=== PATIENT | female | born 1950 | race Caucasian/White ===

== ENCOUNTER 2018-04-20 07:48 | Emergency (ER) | payer BC ==
[2018-04-20] MEDS ORDERED: Meclizine TAB* 12.5 MG PO ONE (08:15)
--- NOTE | 2018-04-20 08:30 | ED ---
Dizziness - HPI Summary HPI Summary: 67 female presents with dizziness for the past week. She says worse when she is standing. She states that it may coincide with her elevated blood pressure. She denies any chest pain or shortness of breath. The dizziness is worse with movement. She states that it feels like she is falling to the right mostly. She denies any ear pain. No fever. No headache. States that the she did not have any dizziness this morning but then she went to the bathroom and she felt so dizzy that it felt like she was going to pass out. She was seen by her primary a couple days ago and told that has fluid behind the ear and to take Flonase. She has been taken the Flonase. She states that her eyes have felt dry for the past week. She has implants in her eyes. She admits to urinary frequency but no dysuria. No recent illness. No abdominal pain. no nausea or vomiting. Her brother did have a CVA. Only medical condition is high blood pressure. She did have recent blood pressure medication changed to metoprolol 3 weeks ago which she has not had before. She needed her blood pressure medications change because she had issues with her kidney function the beginning of this year. - History Of Current Complaint Chief Complaint: EDDizziness Stated Complaint: DIZZINESS Time Seen by Provider: 04/20/18 08:01 - Allergies/Home Medications Allergies/Adverse Reactions: Allergies Allergy/AdvReac Type Severity Reaction Status Date / Time bee venom protein (honey bee) Allergy Anaphylatic Verified 04/20/18 08:01 Shock iodine Allergy Hives Verified 04/20/18 08:01 Sulfa (Sulfonamide Allergy Hives Verified 04/20/18 08:01 Antibiotics) adhesives Allergy Rash Uncoded 04/20/18 08:01 cillins Allergy Diarrhea Uncoded 04/20/18 08:01 PMH/Surg Hx/FS Hx/Imm Hx Endocrine/Hematology History: Denies: Hx Diabetes Cardiovascular History: Reports: Hx Hypertension Denies: Hx Pacemaker/ICD Respiratory History: Denies: Hx Asthma Sensory History: Denies: Hx Hearing Aid Psychiatric History: Denies: Hx Panic Disorder - Cancer History Cancer Type, Location and Year: SKIN Hx Chemotherapy: No Hx Radiation Therapy: No - Surgical History Surgery Procedure, Year, and Place: PAPILLOMA-Left breast , SKIN CA FACE, Infectious Disease History: No Infectious Disease History: Denies: Traveled Outside the [place] in Last 30 Days - Family History Known Family History: Positive: Cardiac Disease, Other - CVA - Social History Alcohol Use: Daily Alcohol Amount: 2 drinks per day Substance Use Type: Reports: None Smoking Status (MU): Heavy Every Day Tobacco Smoker Review of Systems Negative: Fever Negative: Chest Pain Negative: Shortness Of Breath Neurological: Other - dizziness All Other Systems Reviewed And Are Negative: Yes Physical Exam Triage Information Reviewed: Yes Vital Signs On Initial Exam: Initial Vitals Temp Pulse Resp BP Pulse Ox 98.7 F 65 16 185/75 96 04/20/18 07:52 04/20/18 07:52 04/20/18 07:52 04/20/18 07:52 04/20/18 07:52 Vital Signs Reviewed: Yes Appearance: Positive: Well-Appearing Skin: Positive: Warm, Dry Head/Face: Positive: Normal Head/Face Inspection Eyes: Positive: Normal, EOMI, STANLEY, Conjunctiva Clear, Other: - nystagmus present ENT: Positive: Normal ENT inspection, Pharynx normal, TMs normal Respiratory/Lung Sounds: Positive: Clear to Auscultation, Breath Sounds Present Cardiovascular: Positive: Normal, RRR Abdomen Description: Positive: Nontender, Soft Bowel Sounds: Positive: Present Musculoskeletal: Positive: Strength/ROM Intact Neurological: Positive: Sensory/Motor Intact, Alert, Oriented to Person Place, Time, CN Intact II-III, Finger to Nose, Other - rapid alternating movements intact, unidirectional nystagmus, absent skew, pos head thrust to left. Negative: Gilles-Mclean Briscoe Test Psychiatric: Positive: Normal Diagnostics - Vital Signs Vital Signs Temp Pulse Resp BP Pulse Ox 04/20/18 08:08 98.5 F 64 16 213/97 97 04/20/18 07:52 98.7 F 65 16 185/75 96 - Laboratory Result Diagrams: 04/20/18 08:08 04/20/18 08:08 Lab Statement: Any lab studies that have been ordered have been reviewed, and results considered in the medical decision making process. - CT brain CT Interpretation: No Acute Changes - IMPRESSION: There is no evidence of intracranial mass or hemorrhage present. Chronic ischemic White matter change is noted. CT Interpretation Completed By: Radiologist - EKG No standard instances Cardiac Rate: NL EKG Rhythm: Sinus Rhythm ST Segment: Normal EKG Interpretation: sinus rhythm EKG Comparison: No Significant Change Re-Evaluation - Re-Evaluation First Eval Re-Evaluation Time: 09:03 Change: Unchanged Comment: normal gait ambulates but states feels weak Second Eval Re-Evaluation Time: 10:07 Change: Improved Comment: better after blood pressure lower Dizzy Course/Dx - Course Course Of Treatment: 67 female presents with dizziness for the past week. She says worse when she is standing. She states that it may coincide with her elevated blood pressure. She denies any chest pain or shortness of breath. The dizziness is worse with movement. She states that it feels like she is falling to the right mostly. She denies any ear pain. No fever. No headache. States that the she did not have any dizziness this morning but then she went to the bathroom and she felt so dizzy that it felt like she was going to pass out. She was seen by her primary a couple days ago and told that has fluid behind the ear and to take Flonase. She has been taken the Flonase. She states that her eyes have felt dry for the past week. She has implants in her eyes. She admits to urinary frequency but no dysuria. No recent illness. No abdominal pain. no nausea or vomiting. Her brother did have a CVA. Only medical condition is high blood pressure. She did have recent blood pressure medication changed to metoprolol 3 weeks ago which she has not had before. on exam has nystagmus present unidirectional. CN 2-12 intact. neg nle-ilag-mowt. has pos head thrust to left. ekg similiar to previous. labs wbc normal. sodium 133. vitals not orthostatic. brain CT normal. bp is 186/97 manual. after clondine is 176/80. patient blood pressure had been relatively normal until today. weakness and dizziness could be a result of medication reaction. could also be vestibular component as has positive hints test. will have follow up with primary to try switching blood pressure meds. patient understand and agrees with plan. - Diagnoses Differential Diagnosis/HQI/PQRI: Benign Paroxysmal Positional Vertigo, CVA, Hypovolemia, Medication Reaction Provider Diagnoses: Hypertension, Dizziness Discharge - Sign-Out/Discharge Documenting (check all that apply): Patient Departure - Discharge Plan Condition: Good Disposition: HOME Prescriptions: Meclizine TAB* [Antivert 12.5 TAB*] 25 mg PO TID PRN #21 tab PRN Reason: Dizziness Patient Education Materials: Dizziness (ED) Referrals: Rodrigo Perez MD [Primary Care Provider] - Mack Crawley MD [Medical Doctor] - Additional Instructions: Take meclizine up to 3 tablets a day for dizziness as needed check blood pressure daily Follow up with primary within 5 days Referral given to cardiology if blood pressure continues to be elevated Return to ED if develop any new or worsening symptoms - Billing Disposition and Condition Condition: GOOD Disposition: Home
[2018-04-20 08:35] LABS: ABS Basophils 0.1 10^3/ul (0-0.2); ABS Eosinophils 0 10^3/ul (0-0.6); ABS Lymphocytes 1.3 10^3/ul (1.0-4.8); ABS Monocytes 0.4 10^3/ul (0-0.8); ABS Neutrophils 7.8 10^3/ul (1.5-7.7); ABS Nucleated RBC 0 10^3/ul; Eosinophil % 0.4 % (0-6); Hematocrit 49 % (35-47); Hemoglobin 16.9 g/dl (12.0-16.0); Lymphocyte % 13.5 % (25-47); Mean Corpuscular HGB Conc 35 g/dl (31-36); Mean Corpuscular Hemoglobin 32 pg (27-31); Mean Corpuscular Volume 92 fL (80-97); Mean Platelet Volume 7.8 um3 (7.4-10.4); Nucleated Red Blood Cells % 0.1; Platelet Count 158 10^3/ul (150-450); Red Blood Count 5.29 10^6/ul (4.00-5.40); Red Cell Distribution Width 13 % (10.5-15); White Blood Count 9.6 10^3/ul (3.5-10.8)
[2018-04-20 08:45] LABS: EGFR Non-African American 70.3 (>60)
[2018-04-20 08:55] LABS: INR 0.94 (0.77-1.02)
[2018-04-20 08:57] LABS: Urine Appearance Clear; Urine Blood 2+ (Negative); Urine Color Straw; Urine Ketones Negative (Negative); Urine Protein Negative (Negative); Urine Red Blood Cell Trace(0-2/hpf) (Absent); Urine Specific Gravity 1.002 (1.010-1.030); Urine Urobilinogen Negative (Negative); Urine White Blood Cell Absent (Absent)
--- NOTE | 2018-04-20 09:00 | RAD ---
Indication: Dizziness. CT of the brain was performed without IV contrast. Ventricular structures are midline. No midline shift is noted. The extra-axial spaces are unremarkable. There is periventricular lucency consistent with chronic ischemic White matter change. There is no evidence of mass or hemorrhage. No other high or low density lesions are identified. Mastoid air cells and paranasal sinuses are otherwise unremarkable. IMPRESSION: There is no evidence of intracranial mass or hemorrhage present. Chronic ischemic White matter change is noted.
[2018-04-20] MEDS ORDERED: cloNIDine TAB* 0.1 MG PO ONE (09:13)
[2018-04-20 10:18] VITALS: BP 198/90
== END 2018-04-20 10:16 | disposition home or self-care (01) ==
LOC: ED 07:48
DX: R42 Dizziness and giddiness (principal); I10 Essential (primary) hypertension; R35.0 Frequency of micturition; Z88.3 Allergy status to other anti-infective agents; Z91.030 Bee allergy status; Z88.0 Allergy status to penicillin; Z88.2 Allergy status to sulfonamides; Z91.048 Other nonmedicinal substance allergy status; Z85.828 Personal history of other malignant neoplasm of skin; Z82.49 Family history of ischemic heart disease and other diseases of the circulatory system; Z82.3 Family history of stroke; F17.200 Nicotine dependence, unspecified, uncomplicated
CPT/HCPCS: 36415; 70450; 80053; 81003; 81015; 83605; 83735; 84443; 84484; 85025; 85610; 93005; 99283; A9270-GY

== ENCOUNTER 2018-05-01 17:07 | Emergency (ER) | payer BC ==
[2018-05-01 17:15] VITALS: BP 134/60
--- NOTE | 2018-05-01 17:35 | UC ---
Dizzy HPI HPI Summary: Per med admin "Seen at [facility] er on 04/20/18 for dizziness, saw PCP on Friday, BP medication changed on 04/28/18, continues to have episodes of dizziness and increase pulse per patient." -We are able to obtain notes from visit the emergency room. CAT scan was negative. EKG was nonactionable. Labs were nonactionable. She is here with her today. -She hasn't felt well in 3 weeks. Symptoms are vague. She describes a feeling as if she is given a pass out. It happened on 04/20 and then again this afternoon at 4:30. This episode occurred when she was walking down her stairs to go to the basement. She felt as if she was given a pass out. She didn't hear her ears ringing she maybe got a little bit clammy. She sat down on the steps put her head down and waited to recover and then ascended the steps without any problems. She then called her to come home from work. She denies room spinning dizziness. She doesn't have any symptoms when she wakes up in the morning or when she rolls over or gets out of bed. She denies chest pains and shortness of breath. No palpitations. No nausea or vomiting. She has been checking her blood pressures at home and concern for having a heart rate of 96 this afternoon. She is no longer on metoprolol but taking the most certain as directed. She has an appointment with an ENT and cardiology upcoming because of her symptoms. She has a follow-up appointment with her PCP office on 05/06/18. -She was given meclizine for the emergency room without any relief. She has never had vertigo that she knows of. She has been told it was a mild amount of fluid in her ear when she described crackling and it recently. -She doesn't have any obvious symptoms of unilateral weakness numbing or tingling. She gets some prickly-like feeling in her bilateral fingers and toes. No slurred speech. No weakness or dropping things. She does have a prickly feeling in her right abdomen and right flank. Denies dysuria area and no rash. No history of shingles.-she reporst nml carotid dopplers w/in the apst 1 month - History Of Current Complaint Chief Complaint: UCGeneralIllness Stated Complaint: LIGHTHEADED/ PALPITATIONS/ ELVATED BP Time Seen by Provider: 05/01/18 17:10 Pain Intensity: 0 - Allergies/Home Medications Allergies/Adverse Reactions: Allergies Allergy/AdvReac Type Severity Reaction Status Date / Time bee venom protein (honey bee) Allergy Anaphylatic Verified 05/01/18 17:16 Shock iodine Allergy Hives Verified 05/01/18 17:16 Sulfa (Sulfonamide Allergy Hives Verified 05/01/18 17:16 Antibiotics) adhesives Allergy Rash Uncoded 05/01/18 17:16 cillins Allergy Diarrhea Uncoded 05/01/18 17:16 Home Medications: Home Medications Losartan Potassium [Cozaar] 50 mg PO DAILY 05/01/18 [History Confirmed 05/01/18] PMH/Surg Hx/FS Hx/Imm Hx Previously Healthy: Yes Cardiovascular History: Hypertension - Surgical History Surgical History: Yes Surgery Procedure, Year, and Place: PAPILLOMA-Left breast , SKIN CA FACE, - Family History Known Family History: Positive: Cardiac Disease, Other - CVA - Social History Alcohol Use: Daily Alcohol Amount: 2 drinks per day Substance Use Type: None Smoking Status (MU): Light Every Day Tobacco Smoker Review of Systems Constitutional: Negative Skin: Negative Eyes: Negative ENT: Negative Respiratory: Negative Cardiovascular: Negative Gastrointestinal: Negative Genitourinary: Negative Motor: Negative Neurovascular: Negative Musculoskeletal: Negative Neurological: Negative, Numbness, Other - lightheaded Psychological: Negative Is Patient Immunocompromised?: No All Other Systems Reviewed And Are Negative: Yes Physical Exam Triage Information Reviewed: Yes Appearance: Well-Appearing, No Pain Distress, Well-Nourished - slightly anxious appearing. Vital Signs: Initial Vital Signs Temp 98.8 F 05/01/18 17:10 Pulse 90 05/01/18 17:10 Resp 18 05/01/18 17:10 BP 134/60 05/01/18 17:10 Pulse Ox 96 05/01/18 17:10 Vital Signs Reviewed: Yes Eye Exam: Normal Eyes: Positive: Conjunctiva Clear ENT: Positive: Pharynx normal, TMs normal - minimal left serous fluid, Other - Gilles Hallpike negative b/l.. Negative: TM bulging, TM dull, TM red, Tonsillar swelling, Tonsillar exudate, Sinus tenderness Dental Exam: Normal Neck exam: Normal Neck: Positive: Supple, Nontender, No Lymphadenopathy, Other: - no bruits Respiratory Exam: Normal Respiratory: Positive: Lungs clear, Normal breath sounds, No respiratory distress, No accessory muscle use. Negative: Crackles, Rhonchi, Stridor, Wheezing Cardiovascular Exam: Normal Cardiovascular: Positive: RRR, No Murmur, Pulses Normal, Brisk Capillary Refill Abdomen Description: Positive: Nontender, Soft, Other: - no rash. Negative: CVA Tenderness (R), CVA Tenderness (L), Distended, Guarding Bowel Sounds: Positive: Present Musculoskeletal Exam: Normal Musculoskeletal: Positive: Strength Intact Neurological Exam: Normal Neurological: Positive: Alert, Muscle Tone Normal Psychological Exam: Normal Skin Exam: Normal Skin: Negative: rashes Dizzy Course/Dx - Course Course Of Treatment: Gilles Hallpike is negative. EKG - no-actionable. no change from 04/20/18. -labs and CT were non-actionable 04/20/18. -cont current BP meds. Reassuured that HR in 90s is still nml. -keep PCP f/u this week, keep consults w/ ENT & cardiology. referral for neuro given. -adv to call 911 with any CVA like sx which are explained in detail today. -she and her (a ) are appreciative of the help. -I offered ER today and they do not feel this will be effective. If things change or worsen they will go to the ER. -They understood me well adn are agreeable w/ this plan. - Differential Dx/Diagnosis Differential Diagnosis/HQI/PQRI: Anxiety, Benign Paroxysmal Positional Vertigo, CVA, Labyrinthitis, Meniere's Disease Provider Diagnoses: lightheadedness Discharge - Sign-Out/Discharge Documenting (check all that apply): Patient Departure - Discharge Plan Condition: Stable Disposition: HOME Patient Education Materials: Lightheadedness (ED) Referrals: Rodrigo Perez MD [Primary Care Provider] - Andre Champion MD [Medical Doctor] - 1 Week Additional Instructions: Your symptoms may be multifactorial. There was no obvious evidence for vertigo based on the exam I did today. 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 I am also giving you a referral to a neurologist for further evaluation as well. It is reassuring that your CT in the ER 2 wks ago was negative. You should go to the ER via 911 if you have any one sided symptoms of stroke that we discussed, weakness & numbing or slurred speech. Keep your follow up with your PCP's office next week as scheduled. - Billing Disposition and Condition Condition: STABLE Disposition: Home
== END 2018-05-01 18:33 | disposition home or self-care (01) ==
LOC: UCCORT 17:07
DX: R42 Dizziness and giddiness (principal); Z88.1 Allergy status to other antibiotic agents; Z88.8 Allergy status to other drugs, medicaments and biological substances; I10 Essential (primary) hypertension; Z85.828 Personal history of other malignant neoplasm of skin; F17.210 Nicotine dependence, cigarettes, uncomplicated
CPT/HCPCS: 93005; 99211; G0463

== ENCOUNTER 2018-06-26 09:11 | Emergency (ER) | payer BC ==
--- OUTSIDE RECORDS SUMMARY | 2018-06-26 09:25 | XMS REPORT | Continuity of Care Document ---
:1950 External Reference #:[id number] Author Name Ryan Godinez Care Team Providers Name Role Phone Rodrigo Perez M.D. 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 Primary Care Physician Unavailable Payers Type Date Identification Numbers Payment Provider Subscriber Policy Number: [id number] BS [employer] Mandie Garcia PayID: [id number] [address] [address] [place] [address] Advance Directives Description No Information Available Problems Date Description Provider Status Onset: 03/23/2013 Disorder of external ear Ramana Segal M.D. Active Onset: 03/23/2013 Dysfunction of eustachian tube Ramana Segal M.D. Active Onset: 03/23/2013 Chronic rhinitis Ramana Segal M.D. Active Family History Date Family Member(s) Problem(s) Comments Father due to Pneumonia () Mother due to Lung Cancer () Social History Type Date Description Comments Sex Female Tobacco Use Start: Unknown Light tobacco smoker (10 or fewer cigarettes/day) ETOH Use Current Alcohol Use - 1-3 Days A Week. Recreational Drug Use Never Used Drugs Allergies, Adverse Reactions, Alerts Date Description Reaction Status Severity Comments 03/13/2009 Sulfasalazine HIVES Active 03/13/2009 Penicillins HIVES Active 05/05/2018 Latex Urticaria Active Moderate 05/05/2018 Contrast Dye Active 05/05/2018 Iodine Active 05/05/2018 Bee Sting Active 05/05/2018 Amonia Active Medications Medication Date Status Form Strength Qnty SIG Indications Ordering Provider Losartan 00/00/ Active Tablets 1 by Unknown Potassium 0000 mouth every day No Active 03/23/ Hx Unknown Medications 2012 - 2012 Neomycin/Poly 03/23/ Hx Solution 3.5-86505- 1units 5 drops christiane Segalin/HC 2012 - twicw Ramana, 05/04/ daily M.D. 2018 right ear 1 week Tegretol 03/23/ Hx Chewtabs 100mg 15unit 1 po Philipp, 2012 - s daily x Ramana, 05/04/ days M.D. 2017 Astepro 03/29/ Hx Solution 137mcg/Spr 1units 1 sprays Philipp, 2008 - ay in each [facility], 03/23/ nostril M.D. 2012 daily sample given Entocort Ec 03/13/ Hx Caps ER 24HR 3mg 3 qd Philipp, 2008 - Ramana, 05/10/ M.D. 2008 Ciprodex 03/13/ Hx Suspension 0.3-0.1% 1Bottl 2 drops Philipp, 2008 - e in both [facility], 05/10/ ears 3 M.D. 2009 times a day for 1 week Immunizations Description No Information Available Vital Signs Date Vital Result Comment 05/05/2018 4:22pm Weight 142.00 lb Height 64 inches 5'4" BMI (Body Mass Index) 24.4 kg/m2 BP Systolic 126 mmHg BP Diastolic 77 mmHg Heart Rate 75 /min O2 % BldC Oximetry 97 % Body Temperature 97.2 F Pain Level 0 03/23/2013 10:48am Weight 154.00 lb Height 64 inches 5'4" BMI (Body Mass Index) 26.4 kg/m2 BP Systolic 132 mmHg BP Diastolic 84 mmHg Body Temperature 98.0 F 03/13/2009 3:13pm Weight 127.00 lb Height 64 inches 5'4" BMI (Body Mass Index) 21.8 kg/m2 BP Systolic 128 mmHg BP Diastolic 70 mmHg Body Temperature 98.9 F Results Description No Information Available Procedures Date Code Description Status 05/15/2018 72092 Basic Vestibular Eval Completed 05/05/2018 59182 Tympanometry Completed 05/05/2018 76377 Audiometry, Comprehensive Completed 03/29/2009 04905 Tympanometry Completed 03/29/2009 29314 Audiometry, Comprehensive Completed 03/13/2009 73208 Acoustic Reflex Testing Completed 03/13/2009 69667 Tympanometry Completed 03/13/2009 38309 Audiometry, Comprehensive Completed Encounters Type Date Location Provider Dx Diagnosis Office Visit 05/05/2018 Main Office Ramana Segal M.D. R42 Dizziness and 4:30p giddiness H90.3 Sensorineural hearing loss, bilateral Office Visit 03/23/2013 10:45a Main Office Ramana Segal, 380.9 Ear External M.D. Unspecified Disorder 381.81 Eustachian Tube Dysfunction 472.0 Rhinitis Chronic Office Visit 05/10/2009 5:00p Main Office Ramana Segal, 473.9 Sinusitis Chronic M.D. Unspec 472.0 Rhinitis Chronic 470 Deviated Nasal Septum 709.9 Skin & Subcutaneous Tissue Disorders Unspec Office Visit 03/29/2009 3:00p Main Office Ramana Segal, 381.10 Otitis Media M.D. Simple Or Unspec Chronic 389.10 Hearing Loss Sensorineural Unspec 381.81 Eustachian Tube Dysfunction 470 Deviated Nasal Septum 472.0 Rhinitis Chronic Office Visit 03/13/2009 3:00p Main Office Ramana Segal, 381.10 Otitis Media M.D. 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
--- OUTSIDE RECORDS SUMMARY | 2018-06-26 09:25 | XMS REPORT | Continuity of Care Document ---
:1950 External Reference #:[id number] Author Name Thu Ruiz Care Team Providers Name Role Phone Rodrigo Perez M.D. Care Team Information Legal Arbitrator Unavailable Rodrigo Perez M.D. Primary Care Physician Unavailable Payers Type Date Identification Numbers Payment Provider Subscriber Policy Number: [id number] BS CN[employer] Mandie Garcia PayID: [id number] [address] [address] [place] [address] Advance Directives Description No Information Available Problems [...] Form Strength Qnty SIG Indications Ordering Provider No Active 06/26/ Active Unknown Medications 2018 No Active 03/23/ Hx Unknown Medications 2012 - 2012 Neomycin/Poly 03/23/ Hx Solution 3.5-80231- 1units 5 drops tabatha Segal/HC 2012 - twicw Ramana, 05/04/ daily M.D. 2018 right ear 1 week Tegretol 03/23/ Hx Chewtabs 100mg 15unit 1 po Philipp, 2012 - s daily x Ramana, 05/04/ 15 days M.D. 2017 Astepro 03/29/ Hx Solution 137mcg/Spr 1units 1 sprays Philipp, 2008 - ay in each Ramana, 03/23/ nostril M.D. 2012 daily sample given Entocort Ec 03/13/ Hx Caps ER 24HR 3mg 3 qd Philipp, 2008 - Ramana, 05/10/ M.D. 2008 Ciprodex 03/13/ Hx Suspension 0.3-0.1% 1Bottl 2 drops Philipp, 2008 - e in both [facility], 06/26/ ears 3 M.D. 2018 times a day for 1 week Losartan / Hx Tablets 1 by Unknown Potassium 0000 - mouth 06/26/ every day 2018 Immunizations Description No Information Available Vital Signs Date Vital Result Comment 06/26/2018 8:36am Weight 140.00 lb Height 64 inches 5'4" BMI (Body Mass Index) 24.0 kg/m2 BP Systolic 168 mmHg BP Diastolic 77 mmHg Heart Rate 86 /min O2 % BldC Oximetry 95 % Body Temperature 97.0 F Pain Level 5 pt c/o back pain. 05/05/2018 4:22pm Weight 142.00 lb Height 64 [...] Information Available Procedures Date Code Description Status 06/04/2018 15713 Basic Vestibular Eval Completed 06/04/2018 61356 Caloric Vestibular Test With Recording, Bilateral, Completed [place] 05/15/2018 27647 Basic Vestibular Eval Completed 05/05/2018 29401 Tympanometry Completed 05/05/2018 67772 Audiometry, Comprehensive Completed 03/29/2009 46457 Tympanometry Completed 03/29/2009 68458 Audiometry, Comprehensive Completed 03/13/2009 76157 Acoustic Reflex Testing Completed 03/13/2009 36356 Tympanometry Completed 03/13/2009 73396 Audiometry, Comprehensive Completed Encounters Type Date Location [...] 470 Deviated Nasal Septum Plan of Treatment No Information Available
[2018-06-26 11:55] VITALS: BP 124/61
--- NOTE | 2018-06-26 12:00 | UC ---
Back Pain HPI - HPI Summary HPI Summary: Pt presents with on going c/o of generalized body aches, low back pain, right flank pain. Pt reports that she began having "problems" in April 2018 with dizziness and vertigo and elevated BP. Pt was on lisinopril "with no problems" , then switched to metropolol then to losartan. Pt has stopped taking losartan because she said it made her "HEART RACE AND SHE FELT TERRIBLE TAKING IT". Pt now presents with c/o right flank pain and frequent urination. - History of Current Complaint Chief Complaint: UCBackPain Stated Complaint: BACK PAIN Time Seen by Provider: 06/26/18 10:44 Hx Obtained From: Patient ?: No Onset/Duration: Gradual Onset, Lasting Weeks, Still Present Timing: Constant Severity Initially: Mild Severity Currently: Moderate Pain Intensity: 8 Back Pain: Is Diffuse Character: Dull, Aching, Burning Aggravating Factor(s): Movement, Lifting, Bending Alleviating Factor(s): Nothing Associated Signs And Symptoms: Positive: Weakness, Flank Pain Related History: Similar Episode Dx As - benign cyst on kidney - Risk Factors AAA Risk Factors: Negative TAD Risk Factors: Hypertension Cauda Equina Risk Factors: Negative Epidural Abscess Risk Factors: Negative - Allergies/Home Medications Allergies/Adverse Reactions: Allergies Allergy/AdvReac Type Severity Reaction Status Date / Time bee venom protein (honey bee) Allergy Anaphylatic Verified 06/26/18 09:47 Shock iodine Allergy Hives Verified 06/26/18 09:47 Sulfa (Sulfonamide Allergy Hives Verified 06/26/18 09:47 Antibiotics) adhesives Allergy Rash Uncoded 06/26/18 09:47 cillins Allergy Diarrhea Uncoded 06/26/18 09:47 PMH/Surg Hx/FS Hx/Imm Hx Previously Healthy: Yes Cardiovascular History: Hypertension - Surgical History Surgical History: Yes Surgery Procedure, Year, and Place: [place]-Left breast, SKIN CA FACE - Family History Known Family History: Positive: Cardiac Disease, Other - CVA - Social History Occupation: Retired Lives: With Family Alcohol Use: None Alcohol Amount: 2 drinks per day Substance Use Type: None Smoking Status (MU): Light Every Day Tobacco Smoker Type: Cigarettes Amount Used/How Often: 8 CIGS/DAY Have You Smoked in the Last Year: Yes - Immunization History Most Recent Tetanus Shot: UNSURE;STATES ALLERGIC RXN TO TETANUS Hx Tetanus, Diphtheria Vaccination: No Review of Systems Skin: Negative Eyes: Negative ENT: Negative Respiratory: Negative Cardiovascular: Negative Gastrointestinal: Negative Genitourinary: Frequency Motor: Negative Neurovascular: Negative Musculoskeletal: Arthralgia, Myalgia Neurological: Weakness Psychological: Negative Is Patient Immunocompromised?: No All Other Systems Reviewed And Are Negative: Yes Physical Exam Triage Information Reviewed: Yes Appearance: Well-Appearing Vital Signs: Initial Vital Signs Temp 97.4 F 06/26/18 09:51 Pulse 77 06/26/18 09:51 Resp 16 06/26/18 09:51 BP 139/73 06/26/18 09:51 Pulse Ox 99 06/26/18 09:51 Vital Signs Reviewed: Yes Eye Exam: Normal ENT Exam: Normal ENT: Positive: Hearing grossly normal Dental Exam: Normal Neck exam: Normal Respiratory Exam: Normal Respiratory: Positive: Normal breath sounds Cardiovascular: Positive: Murmur:Sys:Grade _?_/ Abdominal Exam: Normal Abdomen Description: Positive: CVA Tenderness (R) Musculoskeletal Exam: Normal Neurological Exam: Normal Psychological Exam: Normal Skin Exam: Normal Diagnostics - Radiology No standard instances Radiology Interpretation Completed By: Radiologist - IMPRESSION: No evidence of obstructive uropathy is noted. No evidence of appendicitis is noted. No other abnormal masses or fluid collections are noted. Back Pain Course/Dx - Differential Dx/Diagnosis Differential Diagnosis/HQI/PQRI: Other - flank pain, hematuria Provider Diagnoses: right flank pain. hematuria Discharge - Sign-Out/Discharge Documenting (check all that apply): Patient Departure All imaging exams completed and their final reports reviewed: Yes - Discharge Plan Condition: Stable Disposition: HOME Patient Education Materials: Hematuria (ED), Flank Pain (ED) Referrals: Rodrigo Perez MD [Primary Care Provider] - As Soon As Possible Hardik Thomas MD [Medical Doctor] - Elliot Dumont MD [Medical Doctor] - Additional Instructions: Please follow up with your PCP as soon as possible. If your symptoms worsen, please go directly to the emergency room for evaluation and treatment as needed. We have provided names of specialists for you to follow up with if needed. - Billing Disposition and Condition Condition: STABLE Disposition: Home - Attestation Statements Provider Attestation: I was available for consult. This patient was seen by the [facility]. The patient was not presented to, seen by, or examined by me. -Courtney
--- NOTE | 2018-06-26 12:52 | RAD ---
Indication: Hematuria, flank pain. CT of the abdomen and pelvis was performed without oral or IV contrast administration. Coronal and sagittal reconstructed images were obtained. Comparison is made with previous exam dated October 10, 2014. The lung bases demonstrate no pleural fluid, nodules or masses. Heart is of normal size without evidence of pericardial effusion. The liver is normal in size. No focal lesions or intrahepatic ductal dilatation is noted. The gallbladder demonstrates no calcified gallstones. No pericholecystic fluid or wall thickening is noted. The spleen is normal in size. The pancreas demonstrates no mass or pancreatic duct dilatation. The common duct is not dilated. The adrenal glands demonstrates bilateral adrenal hyperplasia with suggestion of a small nodule in the right adrenal gland measuring up to 1.3 cm consistent with adrenal adenoma. No hydronephrosis is noted. Atherosclerotic aorta is noted. CT of the pelvis demonstrates no dilated loops of bowel. The colon is filled with stool. The appendix is normal. Urinary bladder is unremarkable. No free fluid is identified. IMPRESSION: No evidence of obstructive uropathy is noted. No evidence of appendicitis is noted. No other abnormal masses or fluid collections are noted.
== END 2018-06-26 13:16 | disposition home or self-care (01) ==
LOC: UCCORT 09:11
DX: R31.9 Hematuria, unspecified (principal); Z88.1 Allergy status to other antibiotic agents; Z88.0 Allergy status to penicillin; I10 Essential (primary) hypertension; Z85.828 Personal history of other malignant neoplasm of skin; F17.210 Nicotine dependence, cigarettes, uncomplicated
CPT/HCPCS: 74176; 81003; 99212; G0463

== ENCOUNTER 2024-06-02 08:39 | Inpatient (IN) ==
[~2024-06-02 08:39] MED LIST: D5W IVPB SCH; FLUOROURACIL IVPB SCH; IRINOTECAN IVPB SCH; LEUCOVORIN CALCIUM IVPB SCH; NS 0.9% IVPB SCH; OXALIPLATIN IVPB SCH
[2024-06-02] MEDS ORDERED: Morphine 2 MG/ML SYRINGE IV PRN (09:26)
[2024-06-02] MEDS ORDERED: Atropine 0.1 MG/ML 10 ml SYR (1 mg) ONE (09:32)
[2024-06-02] MEDS ORDERED: Dexamethasone IV 4 MG/ML VIAL 1 ml VIAL ONE (09:32)
[2024-06-02] MEDS ORDERED: PALONOSETRON HCL 0.05 MG/ML (0.25 MG) SYRINGE (0.05 MG/ML) ONE (09:32)
[2024-06-02] MEDS: NS 0.9% 1000 ml BAG 1,000 ML IV SCH (17:37)
[2024-06-02] MEDS ORDERED: Carboxymethylcellulose/Glyceri 10 ML OPHTH.GEL lubricant eye gel BOTH EYES PRN (17:56)
[2024-06-02] MEDS: Enoxaparin 40 MG/0.4 ML SYR SUBCUT SCH (18:09)
[2024-06-02] MEDS: Ondansetron 4 mg VIAL 2 MG/ML 2 ml VIAL IV PRN (19:20)
[2024-06-02] MEDS: TYLENOL PO PRN (20:50)
[2024-06-02] MEDS: Famotidine IV 10 MG/ML 2 ml VIAL (20 mg) IV SLOW PU SCH (21:34)
[2024-06-03 06:30] LABS: ABS Basophils 0.1 10^3/uL (0.0-0.1); ABS Lymphocytes 0.6 10^3/uL (1.0-4.8); ABS Monocytes 0.8 10^3/uL (0.0-0.9); ABS Nucleated RBC 0.01 10^3/ul; Eosinophil % 0.1 %; Hematocrit 35.1 % (35-45); Hemoglobin 11.7 g/dL (11.5-14.3); Lymphocyte % 4.3 %; Mean Corpuscular Hemoglobin 29.5 pg (27-33); Mean Corpuscular Hgb Conc 33.3 g/dL (31-36); Mean Corpuscular Volume 88.7 fL (80-97); Mean Platelet Volume 6.5 fL (7.5-11.2); Platelet Count 403 10^3/uL (150-450); Red Blood Count 3.96 10^6/uL (3.63-4.92); White Blood Count 14.5 10^3/uL (3.8-11.8)
[2024-06-03 06:49] LABS: Albumin 3.3 g/dL (3.2-5.2); Albumin/Globulin Ratio 1.3 (1-3); Calcium 8.5 mg/dL (8.6-10.3); Creatinine, Serum 0.65 mg/dL (0.51-0.95); Globulin 2.6 g/dL (2-4); Magnesium 1.7 mg/dL (1.9-2.7); Total Bilirubin 0.7 mg/dL (0.2-1.0); Total Protein 5.9 g/dL (6.4-8.9); eGFR CKD-EPI 91.8 (>60)
[2024-06-03] MEDS: SPIRIVA Respimat (tiotropium) 2.5 mcg/inh Inhaler INH SCH (08:07)
[2024-06-03] MEDS: Dexamethasone IV 4 MG/ML VIAL 1 ml VIAL IV SLOW PU SCH (10:04)
[2024-06-03] MEDS: Prochlorperazine 5 mg/ml 2 ml VIAL (10 mg) IV PRN (10:05)
[2024-06-03] MEDS: Senna TAB 8.6 mg TAB PO PRN (10:11)
[2024-06-04 05:34] LABS: ABS Lymphocytes 0.5 10^3/uL (1.0-4.8); ABS Monocytes 0.4 10^3/uL (0.0-0.9); ABS Neutrophils 8.5 10^3/uL (1.5-7.6); Eosinophil % 0.1 %; Hematocrit 32.2 % (35-45); Lymphocyte % 4.9 %; Mean Corpuscular Hemoglobin 30.1 pg (27-33); Mean Corpuscular Hgb Conc 34.2 g/dL (31-36); Mean Platelet Volume 6.4 fL (7.5-11.2); Platelet Count 299 10^3/uL (150-450); Red Blood Count 3.66 10^6/uL (3.63-4.92); Red Cell Distribution Width 14.9 % (12-17); White Blood Count 9.4 10^3/uL (3.8-11.8)
[2024-06-04 06:08] LABS: Albumin 2.9 g/dL (3.2-5.2); Albumin/Globulin Ratio 1.3 (1-3); Calcium 7.8 mg/dL (8.6-10.3); Creatinine, Serum 0.62 mg/dL (0.51-0.95); Globulin 2.2 g/dL (2-4); Magnesium 1.6 mg/dL (1.9-2.7); Potassium 3.9 mmol/L (3.5-5.0); Total Bilirubin 0.5 mg/dL (0.2-1.0); Total Protein 5.1 g/dL (6.4-8.9); eGFR CKD-EPI 92.8 (>60)
[2024-06-04] MEDS: Magnesium Sulf 4 GM/100 ML IV 4,000 MG/100 ML BAG IVPB ONE (11:27)
[2024-06-04 14:01] VITALS: BP 151/67
== END 2024-06-04 15:10 | disposition home or self-care (01) | DRG 375 ==
LOC: CHOA 08:39 → CHOAEAST 08:39 → MED 17:39
PROVIDERS: ADMIT Internal Medicine Hematology & Oncology; ATTEND Internal Medicine Hematology & Oncology

== ENCOUNTER 2024-06-15 12:48 | Inpatient (IN) ==
[2024-06-15] MEDS: Lactated Ringers 1000 ml BAG 1,000 ML IV ONE ×2 (14:04→20:18)
[2024-06-15 14:16] LABS: Hematocrit 29.6 % (35-45); Hemoglobin 9.9 g/dL (11.5-14.3); Mean Corpuscular Hemoglobin 29.9 pg (27-33); Mean Corpuscular Hgb Conc 33.5 g/dL (31-36); Mean Corpuscular Volume 89.1 fL (80-97); Mean Platelet Volume 7.9 fL (7.5-11.2); Platelet Count 178 10^3/uL (150-450); Red Blood Count 3.32 10^6/uL (3.63-4.92); Red Cell Distribution Width 14.8 % (12-17); White Blood Count 5.2 10^3/uL (3.8-11.8)
[2024-06-15 14:32] LABS: INR 1.53 (0.85-1.14)
[2024-06-15 15:05] LABS: ABS Lymphocytes 0.6 10^3/uL (1.0-4.8); ABS Monocytes 0.2 10^3/uL (0.0-0.9); ABS Neutrophils 4.4 10^3/uL (1.5-7.6); Eosinophil % 0.2 %; Lymphocyte % 10.8 %; RBC Morphology Normal (Normal); Toxic Granulation 2+
[2024-06-15 15:31] LABS: Albumin 2.8 g/dL (3.2-5.2); Albumin/Globulin Ratio 1.2 (1-3); Calcium 8.1 mg/dL (8.6-10.3); Creatinine, Serum 1.18 mg/dL (0.51-0.95); Globulin 2.3 g/dL (2-4); Magnesium 1.6 mg/dL (1.9-2.7); Potassium 3.9 mmol/L (3.5-5.0); Total Bilirubin 0.7 mg/dL (0.2-1.0); Total Protein 5.1 g/dL (6.4-8.9); eGFR CKD-EPI 48.2 (>60)
[2024-06-15] MEDS ORDERED: Octreotide Acetate 50 MCG/ML ML IV SLOW PU ONE (15:43)
[2024-06-15 15:53] LABS: High Sensitivity Troponin 1 Hr 113 pg/mL (<15)
[2024-06-15] MEDS: Ondansetron 4 mg VIAL 2 MG/ML 2 ml VIAL IV ONE (16:05)
[2024-06-15] MEDS: D5W IV ONE (16:27)
[2024-06-15] MEDS: DILTIAZEM IV ONE (16:27)
[2024-06-15] MEDS: Iodixanol (CONTRAST) 320 MG/ML 100 ML SDV IV ONE (16:38)
[2024-06-15 17:08] LABS: T4, Total 10.79 mcg/dL (6.09-12.23)
[2024-06-15 17:11] LABS: TSH Ultra Thyroid Stim Horm 4.07 mcIU/mL (0.34-5.60)
[2024-06-15 19:16] LABS: Urine Appearance Clear; Urine Bacteria Absent /HPF (Absent); Urine Bilirubin Negative (Negative); Urine Blood 1+ (Negative); Urine Color Yellow; Urine Glucose Negative (Negative); Urine Ketones Trace (Negative); Urine Nitrite Negative (Negative); Urine Protein 1+ (>=30 mg/dL) (Negative); Urine Red Blood Cell 2+(6-10/hpf) /HPF (0-Trace); Urine Specific Gravity >1.050 (1.002-1.030); Urine Squamous Epithelial Cell Present /HPF (Absent); Urine Urobilinogen Negative (Negative); Urine White Blood Cell Trace(0-5/hpf) /HPF (0-Trace)
[2024-06-15] MEDS: Octreotide Acetate 500 MCG/ML 1 ML VIAL IV ONE (20:32)
[2024-06-15] MEDS: Magnesium Sulfate 2 gm BAG 2 GM/50 ML BAG IVPB ONE (20:32)
[2024-06-15] MEDS ORDERED: Fluticasone NASAL SPRAY 50MCG 16 gm SPRAY BTL INTRANASAL PRN (21:29)
[2024-06-15] MEDS ORDERED: Ondansetron 4 mg VIAL 2 MG/ML 2 ml VIAL IV PRN (21:36)
[2024-06-15] MEDS: Enoxaparin 40 MG/0.4 ML SYR SUBCUT SCH (21:55)
[2024-06-15] MEDS: Digoxin IV 0.5 MG/2 ML AMP (0.25 MG/ML) IV SLOW PU ONE (23:33)
[2024-06-16] MEDS: Lactated Ringers 1000 ml BAG 1,000 ML IV ONE (00:41)
[2024-06-16] MEDS: Amiodarone 150 mg IVPREMIX 150 MG/100 ML BAG IV ONE (01:21)
[2024-06-16] MEDS: Amiodarone 360 MG IVPREMIX 360 MG/200 ML BAG IV SCH ×2 (01:36→07:37)
[2024-06-16] MEDS: Lactated Ringers 1000 ml BAG 1,000 ML IV SCH ×2 (05:16→16:35)
[2024-06-16] MEDS: Magnesium Sulfate 2 gm BAG 2 GM/50 ML BAG IVPB ONE (05:16)
[2024-06-16 05:23] LABS: Hemoglobin 8.9 g/dL (11.5-14.3); Mean Corpuscular Hemoglobin 31.3 pg (27-33); Mean Corpuscular Hgb Conc 35.5 g/dL (31-36); Mean Corpuscular Volume 88.3 fL (80-97); Mean Platelet Volume 7.3 fL (7.5-11.2); Platelet Count 147 10^3/uL (150-450); Red Blood Count 2.83 10^6/uL (3.63-4.92); Red Cell Distribution Width 14.6 % (12-17); White Blood Count 4.2 10^3/uL (3.8-11.8)
[2024-06-16] MEDS: Magnesium Sulfate IV 1GM/100ML 1 GM/100 ML BAG IV ONE (06:02)
[2024-06-16 06:35] LABS: Calcium 7.4 mg/dL (8.6-10.3); Creatinine, Serum 0.86 mg/dL (0.51-0.95); Magnesium 1.4 mg/dL (1.9-2.7); Potassium 3.8 mmol/L (3.5-5.0); eGFR CKD-EPI 70.4 (>60)
[2024-06-16] MEDS: Octreotide Acetate 500 MCG/ML 1 ML VIAL SUBCUT ONE (06:56)
[2024-06-16 07:34] LABS: ABS Lymphocytes 0.5 10^3/uL (1.0-4.8); ABS Monocytes 0.1 10^3/uL (0.0-0.9); ABS Neutrophils 3.6 10^3/uL (1.5-7.6); Eosinophil % 0.5 %; Lymphocyte % 12.5 %; RBC Morphology Normal (Normal)
[2024-06-16] MEDS ORDERED: Sulfur Hexaflouride MICROSPHR 25 MG VIAL ONE (09:41)
[2024-06-16] MEDS: PANCRELIPASE 24000 UNIT PO SCH (10:25)
[2024-06-16 10:38] LABS: C Reactive Protein 188.36 mg/L (<8.01)
[2024-06-16] MEDS: SPIRIVA Respimat (tiotropium) 2.5 mcg/inh Inhaler INH SCH (11:44)
[2024-06-16] MEDS: metroNIDAZOLE IV 500 MG/100ML 500 MG/100 ML BAG IVPB SCH (11:44)
[2024-06-16] MEDS ORDERED: Lactated Ringers 1000 ml BAG 1,000 ML IV SCH (12:00)
[2024-06-16 12:29] LABS: Erythrocyte Sed Rate 52 mm/Hr (0-29)
[2024-06-16] MEDS: Azithromycin 500 mg/250 ml NS 500 MG/250 ML BAG IVPB SCH (13:35)
[2024-06-16] MEDS: Opium Tincture 6 MG/0.6 ML ORAL.LIQ SYRINGE PO SCH (16:33)
[2024-06-16] MEDS: DOXYcycline 100 MG in NS 0.9% 250 ml 250 ML IVPB SCH (21:06)
[2024-06-17 04:27] LABS: Hematocrit 29.1 % (35-45); Hemoglobin 9.9 g/dL (11.5-14.3); Mean Corpuscular Hemoglobin 30.2 pg (27-33); Mean Corpuscular Hgb Conc 33.9 g/dL (31-36); Mean Corpuscular Volume 89.2 fL (80-97); Mean Platelet Volume 7.5 fL (7.5-11.2); Platelet Count 203 10^3/uL (150-450); Red Blood Count 3.26 10^6/uL (3.63-4.92); White Blood Count 4.1 10^3/uL (3.8-11.8)
[2024-06-17 05:03] LABS: Calcium 7.8 mg/dL (8.6-10.3); Creatinine, Serum 0.84 mg/dL (0.51-0.95); Magnesium 1.8 mg/dL (1.9-2.7); Potassium 3.7 mmol/L (3.5-5.0); eGFR CKD-EPI 72.4 (>60)
[2024-06-17 05:52] LABS: ABS Lymphocytes 0.6 10^3/uL (1.0-4.8); ABS Monocytes 0.1 10^3/uL (0.0-0.9); ABS Neutrophils 3.3 10^3/uL (1.5-7.6); Eosinophil % 0.5 %; Lymphocyte % 15.8 %; Nucleated Red Blood Cells % 0.1 %/100WBC (0.0-0.8); RBC Morphology Normal (Normal)
[2024-06-17] MEDS ORDERED: Pancrelipase 5,000 units CAP PO SCH (08:24)
[2024-06-17] MEDS: Pancrelipase 5,000 units CAP PO SCH (08:34)
[2024-06-17] MEDS ORDERED: Sulfur Hexaflouride MICROSPHR 25 MG VIAL IV PRN (09:57)
[2024-06-17] MEDS: Amiodarone 400 mg TAB PO SCH (12:19)
[2024-06-18 06:17] LABS: Hematocrit 28.1 % (35-45); Hemoglobin 9.9 g/dL (11.5-14.3); Mean Corpuscular Hemoglobin 31.3 pg (27-33); Mean Corpuscular Hgb Conc 35.1 g/dL (31-36); Mean Corpuscular Volume 89.1 fL (80-97); Mean Platelet Volume 7.4 fL (7.5-11.2); Platelet Count 224 10^3/uL (150-450); Red Blood Count 3.16 10^6/uL (3.63-4.92); Red Cell Distribution Width 14.7 % (12-17)
[2024-06-18 07:32] LABS: ABS Lymphocytes 0.8 10^3/uL (1.0-4.8); ABS Monocytes 0.2 10^3/uL (0.0-0.9); Eosinophil % 0.5 %; Lymphocyte % 13.4 %; Nucleated Red Blood Cells % 0.1 %/100WBC (0.0-0.8); RBC Morphology Normal (Normal)
[2024-06-18 08:35] LABS: Calcium 7.6 mg/dL (8.6-10.3); Creatinine, Serum 0.78 mg/dL (0.51-0.95); Potassium 3.5 mmol/L (3.5-5.0); eGFR CKD-EPI 79.2 (>60)
[2024-06-18] MEDS: Magnesium Sulfate 2 gm BAG 2 GM/50 ML BAG IVPB ONE (09:22)
[2024-06-18] MEDS: Magnesium Sulfate IV 1GM/100ML 1 GM/100 ML BAG IV ONE (10:42)
[2024-06-18] MEDS: Enoxaparin 40 MG/0.4 ML SYR SUBCUT SCH (20:14)
[2024-06-19 06:52] LABS: Calcium 7.5 mg/dL (8.6-10.3); Creatinine, Serum 0.73 mg/dL (0.51-0.95); Potassium 3.7 mmol/L (3.5-5.0); eGFR CKD-EPI 85.7 (>60)
[2024-06-19 07:52] LABS: Magnesium 2.1 mg/dL (1.9-2.7)
[2024-06-19 12:25] LABS: Adenovirus F40/41 Negative (Negative); Astrovirus Negative (Negative); Cryptosporidium species Negative (Negative); Cyclospora cayetanensis Negative (Negative); Entamoeba histolytica Negative (Negative); Enteroaggregative E.coli(EAEC) Negative (Negative); Enteropathogenic Ecoli(EPEC) Negative (Negative); Enterotoxigenic Ecoli(ETEC) Negative (Negative); Norovirus GI/GII Negative (Negative); Plesiomonas shigelloides Negative (Negative); Salmonella species Negative (Negative); Sapovirus Negative (Negative); Shiga toxin producing E. coli Negative (Negative); Shigella/Enteroinvasive E.coli Negative (Negative); Specimen Source STOOL; Vibrio cholerae Negative (Negative); Yersinia species Negative (Negative)
[2024-06-20 07:19] LABS: Calcium 7.3 mg/dL (8.6-10.3); Creatinine, Serum 0.78 mg/dL (0.51-0.95); Potassium 3.7 mmol/L (3.5-5.0); eGFR CKD-EPI 79.2 (>60)
[2024-06-20 08:32] LABS: Magnesium 1.9 mg/dL (1.9-2.7)
[2024-06-21 06:26] LABS: Calcium 7.1 mg/dL (8.6-10.3); Creatinine, Serum 0.76 mg/dL (0.51-0.95); Potassium 3.4 mmol/L (3.5-5.0); eGFR CKD-EPI 81.7 (>60)
[2024-06-21] MEDS: Potassium Chlor 20 meq TAB.ER PO ONE (07:52)
[2024-06-21 07:59] LABS: Magnesium 1.7 mg/dL (1.9-2.7)
[2024-06-21] MEDS: Magnesium Sulfate 2 gm BAG 2 GM/50 ML BAG IVPB ONE (12:40)
[2024-06-21 23:56] LABS: Pancreatic Elastase Feces <40 mcg/g
[2024-06-22 07:02] LABS: Hematocrit 28.5 % (35-45); Mean Corpuscular Hemoglobin 30.7 pg (27-33); Mean Corpuscular Hgb Conc 34.9 g/dL (31-36); Mean Corpuscular Volume 87.9 fL (80-97); Mean Platelet Volume 7.4 fL (7.5-11.2); Platelet Count 282 10^3/uL (150-450); Red Blood Count 3.25 10^6/uL (3.63-4.92); Red Cell Distribution Width 15.1 % (12-17); White Blood Count 11.1 10^3/uL (3.8-11.8)
[2024-06-22 07:36] LABS: Calcium 7.3 mg/dL (8.6-10.3); Creatinine, Serum 0.76 mg/dL (0.51-0.95); Magnesium 1.6 mg/dL (1.9-2.7); Phosphorus 2.6 mg/dL (2.5-5.0); eGFR CKD-EPI 81.7 (>60)
[2024-06-22 08:01] LABS: ABS Monocytes 0.6 10^3/uL (0.0-0.9); ABS Neutrophils 9.4 10^3/uL (1.5-7.6); ABS Nucleated RBC 0.02 10^3/ul; Anisocytosis 1+; Eosinophil % 0.4 %; Lymphocyte % 8.9 %; Nucleated Red Blood Cells % 0.1 %/100WBC (0.0-0.8); Polychromasia 1+; Toxic Granulation 1+
[2024-06-22] MEDS: Magnesium Sulfate 2 gm BAG 2 GM/50 ML BAG IVPB ONE (08:24)
[2024-06-22] MEDS: Magnesium Sulfate IV 1GM/100ML 1 GM/100 ML BAG IV ONE (11:18)
[2024-06-22 14:50] VITALS: BP 102/52
[2024-06-22 18:35] LABS: Calprotectin 1038 mcg/g
== END 2024-06-22 17:24 | disposition home or self-care (01) | DRG 393 ==
LOC: EDHOLD 12:48 → ED 12:48 → ICU 06-16 01:56 → MEDTELE 06-18 00:20
PROVIDERS: ADMIT Hospitalist; ATTEND Hospitalist